=== PATIENT | male | born 2000 | race Caucasian/White ===

== ENCOUNTER 2022-09-20 20:50 | Emergency (ER) | payer OTHER, SELFPAY ==
[2022-09-20 21:05] VITALS: BP 142/85; PULSE 60; RESP 16; O2SAT 98; BMI 25.7
--- NOTE | 2022-09-20 21:13 | ECG_ITS ---
[facility] Test Date: 2022-09-20 Pat Name: Charo Tomas Department: Room: - Gender: Male Technology Manager: : 2000 Requested By: BARRY MARSHALL Order Number: [id number] Reading MD: BARRY MARSHALL Measurements Intervals [place] Rate: 67 P: 62 TX: 138 QRS: 74 QRSD: 80 T: 49 QT: 392 QTc: 407 Interpretive Statements 1100 Sinus rhythm 1108 Marked sinus arrhythmia 9130 borderline ECG No previous ECG available for comparison Electronically Signed On 09-22-2022 6:22:29 EDT by BARRY MARSHALL
--- NOTE | 2022-09-20 21:26 | PC.NURSE ---
EKG complete in triage room and given to the DR for review prior to pt going back in waiting room to wait for a ER bed.
== END 2022-09-20 22:01 | disposition left against medical advice (07) ==
LOC: ER 22:08
PROVIDERS: Emergency Provider Emergency Medicine; Family Provider Family Medicine
DX: R00.0 Tachycardia, unspecified (principal)
CPT/HCPCS: 93005; 99283